=== PATIENT | female | born 1955 | race Caucasian/White ===

== ENCOUNTER 2017-08-11 15:25 | Emergency (ER) | payer BC ==
[~2017-08-11] VITALS: Ht 175.3 cm; Wt 85.0 kg
[~2017-08-11 15:25] MED LIST: AMT/50 PO; KLN5X PO; LVS125 SL; OXYC-292 PO; SYN100 PO; ZLF/100 PO
[2017-08-11 15:31] VITALS: BP 109/68; Ht 175.3 cm; Wt 85.0 kg
--- NOTE | 2017-08-11 15:57 | DIAGNOSTIC IMAGING REPORT ---
R ANKLE MIN 3 VIEWS ROUTINE CLINICAL HISTORY: Right ankle pain status post trauma COMPARISON: None. DISCUSSION: No fractures or dislocations are visualized. IMPRESSION: No fractures or dislocations identified. Electronically signed by: Rafael Johansen M.D. 08/11/2017 3:56 PM Dictated Date/Time: 08/11/2017 3:55 PM
[2017-08-11] MEDS ORDERED: IBUPROFEN 600 MG TAB PO STA (16:07)
[2017-08-11] MEDS ORDERED: ONDANSETRON 4MG OD TAB PO ONE (16:15)
[2017-08-11 16:28] VITALS: PULSE 72; O2SAT 98
--- NOTE | 2017-08-12 10:56 | EMERGENCY ROOM VISIT NOTE ---
ED Visit Note First contact with patient: 15:34 Chief Complaint: Right ankle pain. History of Present Illness: Ms. Milan is a 62-year-old white female who is brought into the ED via wheelchair complaining of right lateral ankle pain. Historically patient has a history of a left hip arthroplasty. Patient reports approximate 1.5 hours ago she was walking her dog and fell down 5 steps injuring her right ankle. She reports before the fall she was not experiencing any lightheadedness or dizziness, the time of the fall she did not strike her head or have a loss of consciousness and since the fall she is not having any signs of head injury. She reports when she fell she twisted her ankle and from her description this appears to be an inversion injury. She reports immediately after the fall she was not able to get up because of the severity of the pain so she dragged herself to a local gate and pulled herself up. Since the fall she has been having constant right ankle pain over the lateral aspect just anterior and inferior to the malleolus. She describes the pain as a sharp and throbbing discomfort. She rates her discomfort 7/10. Her pain is nonradiating. Her pain worsens with ambulation, palpation, inversion and plantarflexion. She has not identified any alleviating factors related to the pain. She has not taken any medications for pain prior to arrival at the hospital. Associated with her pain she reports that she is starting to feel slightly nauseated. Additionally she reports during the fall her entire right leg was internally rate rotated at the hip and hyperflexed at the knee but she is not experiencing any hip or knee pain. Additionally she denies abdominal pain, back pain, leg weakness/numbness/ tingling. She additionally denies any previous significant injuries or urge areas to the ankle or foot. Review of Systems: As noted above in history of present illness. 5 body systems were reviewed and found to be negative as noted above. Past Medical History: As noted above and esophageal reflux, hypothyroidism, irritable bowel syndrome, hypoglycemia and status post cosmetic surgery. Current Medications: Medications Dose Route/Sig Max Daily Dose Days Date Category Sertraline HCl 100 Mg Tab 100 Mg PO DAILY 08/07/16 Reported Amitriptyline HCl 50 Mg Tab 50 Mg PO HS 08/07/16 Reported Hyoscyamine Sulfate 0.125 Mg Tab 0.125 Mg SL Q4H PRN 06/04/14 Reported Synthroid (Levothyroxine Sodium) 100 Mcg Tab 100 Mcg PO DAILY 06/04/14 Reported Clonazepam 0.5 Mg Tab 0.5 Mg PO DAILY 06/04/14 Reported Oxycodone Hcl Er (Oxycodone Hcl) 10 Mg Tab 10 Mg PO Q12 PRN 06/04/14 Reported Allergies to Medications: Erythromycin, codeine, fentanyl, hydrocodone, prednisone. Social History: Patient is not employed; she feels safe in her home environment ; she denies tobacco use and admits to alcohol use. Physical Examination: Vital Signs: Date Time Temp Pulse Resp B/P (MAP) Pulse Ox O2 Delivery O2 Flow Rate FiO2 08/11/17 16:28 72 18 98 08/11/17 15:31 68 20 109/68 98 Room Air GENERAL: 62-year-old female in mild to moderate distress due to pain, nontoxic- appearing, afebrile and hemodynamically stable. NEUROLOGICAL: Awake, alert and oriented to person, place and time. Answering questions appropriately and following commands. Good hand eye coordination. SKIN: Warm, dry and pink. No soft tissue trauma noted. RIGHT LOWER EXTREMITY: No gross bony deformity. No tenderness in the hip, knee or lower leg. Moderate tenderness over the lateral malleolus and the ligamentous structures anterior and inferior to the malleolus with moderate swelling. No bruising or ecchymosis. No bony deformity or crepitus. Because of her current pain it was difficult to assess her ligamentous structures. She did have decreased range of motion in all movements of the ankle due to pain. She was able to flex and extend all the toes. Dorsalis pedis and anterior tibialis pulses are intact. She is intact to light sensations. Capillary refill is brisk in the toes. ED Course: Patient is assessed as noted above. Patient's medication list was reviewed. Patient was given 600 mg of ibuprofen by mouth for pain, 4 mg of Zofran IV and an ice bag for pain and swelling. Right Ankle X-Rays: Were read by myself and the radiologist showing no acute fractures or dislocations. Patient was placed in a gel splint; she reported she had a walker at home for her previous hip surgery. Patient was educated about today's findings and instructed on her treatment plan ; she verbalized understanding and agreement with this plan. Clinical Impression: Right ankle sprain. Nausea. Disposition: Patient discharged home in stable condition accompanied by her ; prior to departure she was reassessed and subjectively reported she was feeling slightly better and had improvement of her nausea but still rated her discomfort 7/10. Plan: Comfort measures including rest, ice, elevation, alternating ibuprofen and acetaminophen, gel splint and walker use were discussed with the patient. Patient was encouraged to follow-up with training specialist if no better in 7 -10 days. Patient is encouraged return ED for worsening/uncontrolled pain, uncontrolled swelling, foot weakness/numbness/tingling or any new/concerning symptoms.
== END 2017-08-11 16:29 | disposition home or self-care (01) ==
LOC: C.EDB 15:26 → C.EDD 16:29
DX: S93.401A Sprain of unspecified ligament of right ankle, initial encounter (principal); W10.8XXA Fall (on) (from) other stairs and steps, initial encounter; R11.0 Nausea; E03.9 Hypothyroidism, unspecified; K21.9 Gastro-esophageal reflux disease without esophagitis; K58.9 Irritable bowel syndrome, unspecified; Z98.890 Other specified postprocedural states; Z79.899 Other long term (current) drug therapy; Z88.3 Allergy status to other anti-infective agents; Z88.5 Allergy status to narcotic agent; Z88.8 Allergy status to other drugs, medicaments and biological substances

== ENCOUNTER 2017-11-20 13:16 | Emergency (ER) | payer BC ==
[~2017-11-20] VITALS: Ht 175.3 cm; Wt 83.0 kg
[2017-11-20 13:22] VITALS: Ht 175.3 cm; Wt 83.0 kg
[2017-11-20 13:28] VITALS: TEMP 36.6
[2017-11-20] MEDS ORDERED: OXYCODONE HCL IR 5 MG TAB (IMMEDIATE RELEASE) PO STA (14:03)
[2017-11-20] MEDS ORDERED: DIAZEPAM 5MG TAB PO ONE (14:15)
[2017-11-20] MEDS ORDERED: RANITIDINE HCL 150 MG TAB PO ONE (14:30)
--- NOTE | 2017-11-20 15:09 | DIAGNOSTIC IMAGING REPORT ---
CHEST 2 VIEWS ROUTINE CLINICAL HISTORY: posterior chest pain pain COMPARISON STUDY: 08/07/2016 FINDINGS: The bones soft tissues and hemidiaphragms are normal. The cardiomediastinal silhouette is normal. The lungs are clear. The pulmonary vasculature is normal. IMPRESSION: Negative chest. The above report was generated using voice recognition software. It may contain grammatical, syntax or spelling errors. Electronically signed by: Michael Maldonado M.D. 11/20/2017 3:08 PM Dictated Date/Time: 11/20/2017 3:07 PM
--- NOTE | 2017-11-20 15:11 | DIAGNOSTIC IMAGING REPORT ---
THORACIC SPINE 3 VIEWS ROUTINE HISTORY: Pain upper back pain COMPARISON: None. FINDINGS: There is no fracture. No subluxation. Moderate degenerative disc changes throughout. IMPRESSION: No fracture or subluxation within the thoracic spine. Moderate degenerative disc change The above report was generated using voice recognition software. It may contain grammatical, syntax or spelling errors. Electronically signed by: Michael Maldonado M.D. 11/20/2017 3:09 PM Dictated Date/Time: 11/20/2017 3:08 PM
[2017-11-20] MEDS ORDERED: DIAZEPAM 5MG TAB PO STA (15:30)
[2017-11-20] MEDS ORDERED: OXYC1TAB3 PO (15:37)
[2017-11-20] MEDS ORDERED: DIAZ5TAB3 PO (15:37)
--- NOTE | 2017-11-20 15:39 | EMERGENCY ROOM VISIT NOTE ---
History First contact with patient: 13:53 Chief Complaint: BACK PAIN Stated Complaint: MIDDLE BACK PAIN History of Present Illness The patient is a 62 year old female who presents to the Emergency Room with complaints of right-sided upper back pain. The patient states that she has chronic right shoulder pain and low back pain for which she is under the care of Dr. Evangelista her PCP and Dr. Young at orthopedics. The patient states that she was at [facility] today and had an acute onset of right sided upper back pain. The patient states it hurts to move or to take in a deep breath. The patient states that she has had similar low back pains in the past for which they gave her Valium with relief. Review of Systems 10 system review was performed and was negative unless stated otherwise history of present illness. Past Medical/Surgical History Medical Problems: (1) Esophageal Reflux (2) Hypoglycemia Nos (3) Hypothyroidism Nos (4) IBS (irritable bowel syndrome) Family History Patient reports no known family medical history. Social History Smoking Status: Never Smoker Alcohol Use: occasionally Marital Status: Housing Status: lives with significant other Occupation Status: employed Current/Historical Medications Scheduled Clonazepam (Clonazepam), 0.5 MG PO QAM Levothyroxine Sodium (Synthroid), 100 MCG PO QAM Sertraline HCl (Sertraline HCl), 100 MG PO QAM Scheduled PRN Hyoscyamine Sulfate (Hyoscyamine Sulfate), 0.125 MG SL Q4H PRN for Abdominal Pain Oxycodone Hcl (Oxycodone Hcl Er), 10 MG PO Q12 PRN for Pain Physical Exam Vital Signs Date Time Temp Pulse Resp B/P (MAP) Pulse Ox O2 Delivery O2 Flow Rate FiO2 11/20/17 15:15 60 16 126/88 99 11/20/17 13:28 36.6 81 32 135/113 98 Room Air Physical Exam GENERAL: 62-year-old white female appears uncomfortable secondary to pain. MENTAL Status: Alert and oriented 3. LUNGS: Clear auscultation without wheezes rales or rhonchi. CARDIAC: Regular rate and rhythm without murmur. Pulses is full and equal throughout. Thoracic SPINE: The patient is nontender to palpation over the spinous processes. She is tender to palpation over the right paravertebral region, left side is nontender. LUMBAR SPINE: The patient is tenderness palpation over the mid to lower lumbar spinous processes and in the paravertebral region bilaterally. Medical Decision & Procedures ER Provider Diagnostic Interpretation: THORACIC SPINE 3 VIEWS ROUTINE HISTORY: Pain upper back pain COMPARISON: None. FINDINGS: There is no fracture. No subluxation. Moderate degenerative disc changes throughout. IMPRESSION: No fracture or subluxation within the thoracic spine. Moderate degenerative disc change The above report was generated using voice recognition software. It may contain grammatical, syntax or spelling errors. Electronically signed by: Michael Maldonado M.D. 11/20/2017 3:09 PM CHEST 2 VIEWS ROUTINE CLINICAL HISTORY: posterior chest pain pain COMPARISON STUDY: 08/07/2016 FINDINGS: The bones soft tissues and hemidiaphragms are normal. The cardiomediastinal silhouette is normal. The lungs are clear. The pulmonary vasculature is normal. IMPRESSION: Negative chest. The above report was generated using voice recognition software. It may contain grammatical, syntax or spelling errors. Electronically signed by: Michael Maldonado M.D. 11/20/2017 3:08 PM Medications Administered Medications (Trade) Dose Ordered Sig/Stephanie Route Start Time Stop Time Status Last Admin Dose Admin Diazepam (Valium Tab) 5 mg NOW ONCE PO 11/20/17 14:15 11/20/17 14:16 DC 11/20/17 14:18 5 MG Oxycodone HCl (Roxicodone Immediate Rel Tab) 10 mg NOW STAT PO 11/20/17 14:03 11/20/17 14:06 DC 11/20/17 14:18 10 MG Ranitidine HCl (zANTac TAB) 150 mg NOW ONCE PO 11/20/17 14:30 11/20/17 14:31 DC 11/20/17 15:16 150 MG ED Course The patient was evaluated. The patient initially stated she did not want to have the x-ray but then agreed to having the x-rays performed. She wanted to make sure that the pain medication was working before she would go for the x- rays. The patient was given OxyIR 10 mg p.o. and Valium 5 mg p.o. She also stated that she felt like she was getting reflux when she was given the meds therefore she was given Zantac 150 mg p.o. X-rays of the thoracic spine and chest were ordered interpreted by the radiologist as above without any acute findings. Patient was reevaluated and was feeling much better but still had spasms in the right upper thoracic region. The patient was given additional 5 mg of Valium p.o. the the PD MP was accessed. The patient has only had clonazepam prescribed to her for several months. She has not had any narcotics. The patient was discharged to home in stable condition. Medical Decision Differential diagnosis include rib fracture, compression fracture of the thoracic spine, thoracic strain, pneumothorax, aortic dissection [place] Drug Monitoring Program Search Results: patient reviewed within database Medication Reconcilliation Current Medication List: was personally reviewed by me Blood Pressure Screening Patient's blood pressure: Normal blood pressure Impression Primary Impression: Strain of thoracic region Departure Information Dispostion Home / Self-Care Condition GOOD Prescriptions Diazepam (VALIUM) 5 Mg Tab 1-2 TAB PO TID Y for Muscle Spasms, #20 TAB Prov: Millie Maldonado PA-C 11/20/17 Oxycodone Immediate Rel Tab (ROXICODONE IR) 5 Mg Tab 1-2 TAB PO Q4H Y for Pain, #24 TAB Prov: Millie Maldonado PA-C 11/20/17 Referrals Jeane Evangelista M.D. (MEDICAL) (PCP) Forms HOME CARE DOCUMENTATION FORM, IMPORTANT VISIT INFORMATION Patient Instructions My [facility] [place] [employer] Additional Instructions Avoid any strenuous exercise with her upper body until symptoms have resolved. Take oxycodone as needed for pain. Take Valium as needed for muscle spasms. Hold your clonazepam while taking the Valium. Do not drive while taking either 1 of these medications. Follow-up with your PCP on Friday for recheck. If symptoms worsen in the interim do not hesitate to return to the ER. Problem Qualifiers Primary Impression: Strain of thoracic region Encounter type: initial encounter Qualified Codes: S29.019A - Strain of muscle and tendon of unspecified wall of thorax, initial encounter
[2017-11-20 15:59] VITALS: BP 127/83; PULSE 81; O2SAT 98
== END 2017-11-20 16:00 | disposition home or self-care (01) ==
LOC: C.EDB 13:17 → C.EDD 16:00
DX: S29.019A Strain of muscle and tendon of unspecified wall of thorax, initial encounter (principal); X58.XXXA Exposure to other specified factors, initial encounter; K21.9 Gastro-esophageal reflux disease without esophagitis; E16.2 Hypoglycemia, unspecified; E03.9 Hypothyroidism, unspecified; K58.9 Irritable bowel syndrome, unspecified

== ENCOUNTER 2018-01-06 18:17 | Emergency (ER) | payer BC ==
[~2018-01-06] VITALS: Ht 175.3 cm; Wt 84.6 kg
[~2018-01-06 18:17] MED LIST changes: -AMT/50 PO; +OXYC1TAB3 PO
[2018-01-06 18:34] VITALS: TEMP 36.7; Ht 175.3 cm; Wt 84.6 kg
[2018-01-06] MEDS ORDERED: PROPARACAINE HCL 0.5% OP SOLN 15 ML BTL OP STA (18:49)
[2018-01-06] MEDS ORDERED: CIPROFLOXACIN HCL 0.3% OP SOLN 2.5 ML BTL OP ONE (19:30)
--- NOTE | 2018-01-06 19:31 | EMERGENCY ROOM VISIT NOTE ---
History First contact with patient: 18:45 Chief Complaint: EYE PAIN Stated Complaint: BEE STING IN EYE History of Present Illness The patient is a 62 year old female who presents to the Emergency Room with complaints of a bee sting to her left eye. The patient reports that she was walking and suddenly felt a stinging sensation in her left eye. She also reports that she heard to be buzzing noise of an insect. She states that she now has a continued stinging pain in the eye and rates her discomfort a 2/10. It feels like there is something stuck in the eye. Her vision overall is not affected. Her reports that he can see the stinger in her eye. She denies any other complaints. Review of Systems A complete 10 point review of systems was reviewed with the patient with pertinent positives and negatives as per history of present illness. All else were negative. Past Medical/Surgical History Medical Problems: (1) Esophageal Reflux (2) Hypoglycemia Nos (3) Hypothyroidism Nos (4) IBS (irritable bowel syndrome) Family History Patient reports no known family medical history. Social History Smoking Status: Former Smoker Alcohol Use: occasionally Marital Status: Housing Status: lives with significant other Occupation Status: employed Current/Historical Medications Scheduled Clonazepam (Clonazepam), 0.5 MG PO QAM Levothyroxine Sodium (Synthroid), 100 MCG PO QAM Sertraline HCl (Sertraline HCl), 100 MG PO QAM Scheduled PRN Hyoscyamine Sulfate (Hyoscyamine Sulfate), 0.125 MG SL Q4H PRN for Abdominal Pain Oxycodone Hcl (Oxycodone Hcl Er), 10 MG PO Q12 PRN for Pain Oxycodone Immediate Rel Tab (Roxicodone Ir), 1-2 TAB PO Q4H PRN for Pain Physical Exam Vital Signs Date Time Temp Pulse Resp B/P (MAP) Pulse Ox O2 Delivery O2 Flow Rate FiO2 01/06/18 19:47 96 20 116/79 99 01/06/18 18:34 36.7 111 20 118/83 94 Room Air Physical Exam VITALS: Vitals are noted on the nurse's note and reviewed by myself. Vital signs stable. GENERAL: This is a 62-year-old female, in no acute distress, nondiaphoretic, well-developed well-nourished. SKIN: The skin was without rashes. EYES: Pupils equal round and reactive to light and accommodation. Mild left conjunctival injection. No foreign bodies seen under slit lamp examination. No significant fluorescein uptake under UV light examination. There is a tiny area of possible swelling inferior to the iris at approximately 7:00. NEURO: Patient was alert and oriented to person place and time. Medical Decision & Procedures Medications Administered Medications (Trade) Dose Ordered Sig/Stephanie Route Start Time Stop Time Status Last Admin Dose Admin Ciprofloxacin HCl (Ciprofloxacin 0.3% Op Soln) 2 drops Q4H ONCE OP 01/06/18 19:30 01/06/18 19:31 DC 01/06/18 19:37 2 DROPS Medical Decision Differential diagnosis includes corneal abrasion, corneal foreign body, corneal laceration, among others. The patient was evaluated as above. She was very concerned that the stinger was stuck in her eye. On exam, there is no obvious foreign body seen in the eye. There is a small amount of swelling in the area of concern and I suspect that this was the area of injury. The patient's significant other is very convinced that the stinger was stuck in her eye initially afterward. It is possible that there was initially a foreign body which was later dislodged. The patient will be placed on Ciloxan drops. She was given information for ophthalmology follow-up if her symptoms do not improve. She verbalized understanding of my assessment and treatment plan and was discharged home in good condition. Medication Reconcilliation Current Medication List: was personally reviewed by me Blood Pressure Screening Patient's blood pressure: Normal blood pressure Impression Primary Impression: Corneal abrasion Departure Information Dispostion Home / Self-Care Condition GOOD Referrals Jeane Evangelista M.D. (MEDICAL) (PCP) Luther Torres D.O. Patient Instructions My [facility] Additional Instructions You have been treated in the Emergency Department today for your Corneal Abrasion. You have been prescribed Ciloxan eye drops. This is an antibiotic which will help to prevent an infection from developing in your affected eye. You should use 2 drops in the affected eye every 2 hours while awake for the first 2 days, then every 4 hours for the remaining 5 days. This is a total of a 7-day course for these antibiotic eye drops. For pain control, you can use the following [id number] medicines (if >12 yo): - Regular strength (325mg/tab) Tylenol (acetaminophen) 2 tabs every 4-6 hours as needed. Do not exceed 12 tablets in a 24 hour period. Avoid taking more than 4 grams (4000 mg) of Tylenol per day. This includes any other sources of acetaminophen you may take on a regular basis. - Regular strength (200 mg/tab) Advil (ibuprofen) 1-2 tabs every 4-6 hours as needed. Do not exceed a dose of 3200 mg per day. You should relax in a quiet, dark place for the rest of the day. You should wear sunglasses while outside for the next few days until your eyes are not as sensitive to the light. You should schedule a follow-up appointment in 2-3 days with your Primary Care Provider or established Eye Doctor (Superintendent Track) for further evaluation and treatment of your Corneal Abrasion. Return to the Emergency Department if your current symptoms worsen despite treatment course outlined above, or if you develop any of the following symptoms : intractable pain, visual disturbances, loss of vision, increased redness, swelling, drainage, or if you develop a fever. Problem Qualifiers Primary Impression: Corneal abrasion Encounter type: initial encounter Laterality: left Qualified Codes: S05.02XA - Injury of conjunctiva and corneal abrasion without foreign body, left eye, initial encounter
[2018-01-06 19:47] VITALS: BP 116/79; PULSE 96; O2SAT 99
== END 2018-01-06 19:40 | disposition home or self-care (01) ==
LOC: C.EDB 18:17 → C.EDD 19:40
DX: S05.02XA Injury of conjunctiva and corneal abrasion without foreign body, left eye, initial encounter (principal); X58.XXXA Exposure to other specified factors, initial encounter; K21.9 Gastro-esophageal reflux disease without esophagitis; E03.9 Hypothyroidism, unspecified; K58.9 Irritable bowel syndrome, unspecified; Z87.891 Personal history of nicotine dependence; Z79.899 Other long term (current) drug therapy